=== PATIENT | male | born 1975 | race American Indian/Alaskan Native ===

== ENCOUNTER 2021-08-11 03:58 | Emergency (ER) | payer MEDICARE ==
--- NOTE | 2021-08-11 04:41 | Emergency Department Report ---
ED General Adult HPI - General Chief complaint: Extremity Injury, Lower Stated complaint: BILATERAL LEG PAIN Time Seen by Provider: 08/11/21 04:32 Source: patient, EMS Mode of arrival: Stretcher Limitations: No Limitations - History of Present Illness Initial comments: EMS picked pt up from [facility], pt c/o bilateral leg pain x 2 weeks. Pt uncooperative with any other questions D-stick 160 pt admit o heropin, no fever no injury, -: week(s) Location: lower extremity Radiation: non-radiation Associated Symptoms: denies: denies other symptoms, confusion, chest pain, diaphoresis, fever/chills Treatments Prior to Arrival: none - Related Data Allergies Allergy/AdvReac Type Severity Reaction Status Date / Time No Known Allergies Allergy Unverified 08/11/21 04:11 ED Review of Systems ROS: Stated complaint: BILATERAL LEG PAIN Other details as noted in HPI Comment: Unobtainable due to pts medical conditions Constitutional: denies: chills, fever Eyes: denies: eye pain, eye discharge, vision change ENT: denies: ear pain, throat pain Respiratory: denies: cough, shortness of breath, wheezing Cardiovascular: denies: chest pain, palpitations Endocrine: no symptoms reported Gastrointestinal: denies: abdominal pain, nausea, diarrhea Genitourinary: denies: urgency, dysuria Musculoskeletal: denies: back pain, joint swelling, arthralgia Skin: denies: rash, lesions Neurological: denies: headache, weakness, paresthesias Psychiatric: denies: anxiety, depression Hematological/Lymphatic: denies: easy bleeding, easy bruising ED Past Medical Hx - Past Medical History Previous Medical History?: No Hx Hypertension: No Additional medical history: UTO - Surgical History Additional Surgical History: UTO - Social History Smoking Status: Unknown if ever smoked ED Physical Exam - General Limitations: No Limitations General appearance: alert, appears intoxicated - Head Head exam: Present: atraumatic, normocephalic - Eye Eye exam: Present: normal appearance - ENT ENT exam: Present: mucous membranes moist - Neck Neck exam: Present: normal inspection - Respiratory Respiratory exam: Present: normal lung sounds bilaterally. Absent: respiratory distress - Cardiovascular Cardiovascular Exam: Present: regular rate, normal rhythm. Absent: systolic murmur, diastolic murmur, rubs, gallop - GI/Abdominal GI/Abdominal exam: Present: soft, normal bowel sounds - Rectal Rectal exam: Present: deferred - Extremities Exam Extremities exam: Present: normal inspection - Expanded Lower Extremity Exam Left Neuro vascular tendon exam: Present: no vascular compromise Right Neuro vascular tendon exam: Present: no vascular compromise - Back Exam Back exam: Present: normal inspection - Neurological Exam Neurological exam: Present: alert, oriented X3 - Psychiatric Psychiatric exam: Present: normal affect, normal mood - Skin Skin exam: Present: warm, dry, intact, normal color. Absent: rash ED Course Vital Signs 08/11/21 04:01 Temperature 99.7 F H Pulse Rate 96 H Respiratory 16 Rate Blood Pressure 120/78 O2 Sat by Pulse 100 Oximetry ED Medical Decision Making - Medical Decision Making vss , pt admit to heroin tonight exam is completely normal [place] Critical care attestation.: If time is entered above; I have spent that time in minutes in the direct care of this critically ill patient, excluding procedure time. ED Disposition Clinical Impression: Drug abuse, Leg pain Disposition: HOME / SELF CARE / HOMELESS Is pt being admited?: No Does the pt Need Aspirin: No Condition: Stable Instructions: Substance Use Disorder and Mental Illness
[2021-08-11] MEDS ORDERED: NALOXONE 0.4 MG/1 ML INJ IM ONE (05:20)
[2021-08-11] MEDS ORDERED: NALOXONE 2 MG/2 ML INJ IM ONE (05:30)
[2021-08-11] MEDS ORDERED: ONDANSETRON 4 MG/2 ML INJ IM ONE (07:25)
[2021-08-11 11:57] VITALS: BP 134/64
== END 2021-08-11 11:57 | disposition home or self-care (01) ==
LOC: ED 03:58
DX: M79.604 Pain in right leg (principal); M79.605 Pain in left leg; F19.10 Other psychoactive substance abuse, uncomplicated
CPT/HCPCS: 96372; 99283; J2310; J2405